=== PATIENT | female | born 1990 | race Caucasian/White ===

== ENCOUNTER 2020-05-08 07:23 | Emergency (ER) | payer OTHER ==
[2020-05-08] MEDS ORDERED: DIPHTH,PERTUSS(ACELL),TET 0.5 ML DISP.SYRIN IM ONE ×2 (07:37→07:38)
[2020-05-08 07:39] VITALS: BP 141/77; PULSE 99; TEMP 98.9; BMI 28.0
== END 2020-05-08 07:56 | disposition home or self-care (01) ==
LOC: FER 07:23
PROC: 3E0234Z Introduction of Serum, Toxoid and Vaccine into Muscle, Percutaneous Approach (ICD-10-PCS; principal; 2020-05-08)
DX: S61.212A Laceration without foreign body of right middle finger without damage to nail, initial encounter (principal)
CPT/HCPCS: 90715; 99284-25